=== PATIENT | female | born 1935 | race Caucasian/White ===

== ENCOUNTER 2017-02-12 15:39 | Emergency (ER) | payer MEDICARE, BC ==
[~2017-02-12] VITALS: Ht 172.7 cm; Wt 101.0 kg
[~2017-02-12 15:39] MED LIST: AMLO2.5T PO; ASPI81 PO; DETR2TAB PO; OMEP20TA PO; ROSU40 PO; TIMO0.255 OU; [UNRECOGNIZED DRUG - OTHER]
[2017-02-12 15:49] VITALS: BP 143/75; PULSE 79; RESP 18; TEMP 97.4; O2SAT 94
[2017-02-12] MEDS ORDERED: ACETAMINOPHEN 325 MG TAB PO ONE (16:00)
--- NOTE | 2017-02-12 16:02 | PD ---
HPI Chief Complaint: Fall Time Seen by Provider: 15:49 Travel History International Travel<30 days: No Contact w/Intl Traveler<30days: No Traveled to known affect area: No History of Present Illness HPI Patient is an 81-year-old female who presents to emergency room after she had a mechanical fall at the [facility] today. Patient reports that she was knitting, reports that she got up to use the restroom, reports that she has not lifts her leg up appropriately and ended up tripping and falling forward. Patient reports that when she fell, the brunt of the fall landed on her right knee. Patient reports that she also hit her right forehead onto the ground after the fall. Patient reports that she does take a baby aspirin per day, reports that she is not on any other anticoagulants at this time. Patient reports mild frontal headache, no dizziness. Patient with no nausea or vomiting , no neck pain or back pain. Denies chest or abdominal pain. Patient reports that she was not allowed ambulate after her fall. She also complains of right knee pain. 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 PFSH Past Medical History Hx Anticoagulant Therapy: No Arthritis: Yes Autoimmune Disease: No Blood Disorders: No Cancer: No Cardiovascular Problems: No High Cholesterol: Yes Chemotherapy: No Cerebrovascular Accident: No Diabetes: No Diminished Hearing: No Endocrine: No Gastrointestinal Disorders: Yes GERD: Yes Glaucoma: Yes Genitourinary: No Hypertension: Yes Immune Disorder: No Musculoskeletal: Yes Neurologic: No Psychiatric: No Respiratory: No Immunizations Current: Yes ?: Not Menopausal: Yes Past Surgical History Abdominal Surgery: Yes Body Medical Devices: T HIPS (BILAT) AND LEFT KNEE Cardiac Surgery: No Ear Surgery: No Endocrine Surgery: No Eye Surgery: Yes (LEFT EYE DETACHED RETNIA, BILATERAL CATARACT SX) Genitourinary Surgery: No Gynecologic Surgery: Yes (BILAT BREAST BIOPSY) Hysterectomy: No Joint Replacement: Yes (BILATERAL HIPS,BILAT KNEE'S) Neurologic Surgery: Yes Oral Surgery: Yes (WISDOM TEETH EXTRACTED) Thoracic Surgery: No Other Surgery: Yes (RIGHT FOOT NEUROMA REMOVED) Social History Alcohol Use: Yes (OCASS. WINE) Tobacco Use: No Substance Use: No Allergies-Medications (Allergen,Severity, Reaction): Coded Allergies: adhesive (Unverified Allergy, Severe, Rash, 02/12/17) Reported Meds & Prescriptions Reported Meds & Active Scripts Active Reported Crestor (Rosuvastatin Calcium) 40 Mg Tab 5 Mg PO DAILY Detrol 2 mg (Tolterodine Tartrate) 2 Mg Tab 2 Tab PO BID Amlodipine Besylate 2.5 mg (Amlodipine Besylate) 2.5 Mg Tab 2.5 Mg PO DAILY Omeprazole 20 mg (Omeprazole) 20 Mg Tab 20 Mg PO DAILY Timoptic (Timolol Maleate) 0.25 % Soln 1 Drop OU BID [Lumagan] 1 Drop HS Aspirin 81 Mg Tab 81 Mg PO DAILY Review of Systems General / Constitutional: No: Fever Eyes: No: Visual changes HENT: Positive: Headaches Cardiovascular: No: Chest Pain or Discomfort Respiratory: No: Shortness of Breath Gastrointestinal: No: Abdominal Pain Genitourinary: No: Dysuria Musculoskeletal: Positive: Limited ROM (right knee), Pain (right knee) Skin: No Rash Neurologic: Positive: Headache, No: Weakness, Dizziness Psychiatric: No: Depression Endocrine: No: Polydipsia Hematologic/Lymphatic: No: Easy Bruising Physical Exam Narrative GENERAL: No acute distress, nontoxic SKIN: Focused skin assessment warm/dry. HEAD: Normocephalic. Patient with mild abrasion to right forehead EYES: Pupils equal and round. No scleral icterus. No injection or drainage. ENT: No nasal bleeding or discharge. Mucous membranes pink and moist. NECK: Trachea midline. No JVD. CARDIOVASCULAR: Regular rate and rhythm. No murmur appreciated. RESPIRATORY: No accessory muscle use. Clear to auscultation. Breath sounds equal bilaterally. GASTROINTESTINAL: Abdomen soft, non-tender, nondistended. Hepatic and splenic margins not palpable. MUSCULOSKELETAL: No obvious deformities. No clubbing. No cyanosis. Patient with bruising to the right knee NEUROLOGICAL: Awake and alert. No obvious cranial nerve deficits. Motor grossly within normal limits. Normal speech. CN 2-12 grossly intact with no neurovascular deficits PSYCHIATRIC: Appropriate mood and affect; insight and judgment normal. Data Data Last Documented VS Vital Signs Date Time Temp Pulse Resp B/P (MAP) Pulse Ox O2 Delivery O2 Flow Rate FiO2 02/12/17 15:49 97.4 79 18 143/75 (97) [address] Brain W/O Iv Contrast(Rout) (02/12/17 15:55) Knee, Complete (4vws) (02/12/17 ) Acetaminophen (Tylenol) (02/12/17 16:00) MDM Medical Decision Making Medical Screen Exam Complete: Yes Emergency Medical Condition: Yes Medical Record Reviewed: Yes Interpretation(s) Vital Signs Date Time Temp Pulse Resp B/P (MAP) Pulse Ox O2 Delivery O2 Flow Rate FiO2 02/12/17 15:49 97.4 79 18 143/75 (97) 94 Differential Diagnosis ich, facial contusion, knee fx, patella fx, knee sprain Narrative Course During the course of the patients emergency department visit, the patients history, examination, and differential diagnosis were reviewed with the patient. The patient was placed on a telemetry monitor with oximetry and frequent blood pressure monitoring. The patient was initially provided acetaminophen for pain Radiology studies were reviewed and remarkable for: Last Impressions Knee X-Ray 02/12/17 0000 Signed Impressions: Service Date/Time: Friday, February 12, 2017 16:01 - CONCLUSION: 1. Intact total knee arthroplasty. 2. No fracture or effusion. Zach Veronica MD Ct of head: no acute disease Patient reevaluated, patient feeling much better at this time. Reviewed all labs and all studies with patient detail, patient ambulating emergency with normal gait. She'll follow-up with a primary care doctor and will return to the emergency room as needed. Diagnosis Primary Impression: Head injury Qualified Codes: S09.90XA - Unspecified injury of head, initial encounter Additional Impression: Knee contusion Qualified Codes: S80.01XA - Contusion of right knee, initial encounter Patient Instructions: General Instructions Additional Instructions: Please provide patient with a copy of their lab work and studies at discharge* * Please follow up with your primary care doctor in 2-3 days Return to the ER if symptoms worsen or progress Return to the ER as needed Ice/elevate your right lower extremity Disposition: 01 DISCHARGE HOME Condition: Stable ThangPrudence Emilia KABA Feb 12, 2017 16:02
--- NOTE | 2017-02-12 16:22 | RADRPT ---
EXAM DATE/TIME: 02/12/2017 16:01 [facility] COMPARISON: No previous studies available for comparison. INDICATIONS : Right knee pain post fall today MEDICAL HISTORY : None. SURGICAL HISTORY : Total knee replacement, right. ENCOUNTER: Initial ACUITY: 1 day PAIN SCORE: 7/10 LOCATION: Right anterior knee FINDINGS: Four view examination of the right knee demonstrates a total knee arthroplasty with no fracture or di slocation. All 3 components are appropriately positioned. No effusion. CONCLUSION: 1. Intact total knee arthroplasty. 2. No fracture or effusion. Zach Veronica MD on February 12, 2017 at 16:19 Board Certified Radiologist. This report was verified electronically.
--- NOTE | 2017-02-12 16:24 | RADRPT ---
EXAM DATE/TIME: 02/12/2017 16:08 [facility] COMPARISON: No previous studies available for comparison. INDICATIONS : Trauma, fall. RADIATION DOSE: 57.09 CTDIvol (mGy) MEDICAL HISTORY : Hypertension. SURGICAL HISTORY : None. ENCOUNTER: Initial ACUITY: 1 day PAIN SCALE: 5/10 LOCATION: anterior head TECHNIQUE: Multiple contiguous axial images were obtained of the head. Using automated exposure control and adj ustment of the mA and/or kV according to patient size, radiation dose was kept as low as reasonably a chievable to obtain optimal diagnostic quality images. DICOM format image data is available electro nically for review and comparison. FINDINGS: CEREBRUM: The ventricles are normal for age. No evidence of midline shift, mass lesion, hemorrhage or acute in farction. No extra-axial fluid collections are seen. POSTERIOR FOSSA: The cerebellum and brainstem are intact. The 4th ventricle is midline. The cerebellopontine angle i s unremarkable. EXTRACRANIAL: The visualized portion of the orbits is intact. SKULL: The calvaria is intact. No evidence of skull fracture. CONCLUSION: No acute disease. Benito Rodriguez Jr., MD on February 12, 2017 at 16:19 Board Certified Radiologist. This report was verified electronically.
[2017-02-12 17:22] VITALS: BP 132/78
== END 2017-02-12 17:23 | disposition home or self-care (01) ==
LOC: PHED 15:39
DX: S09.90XA Unspecified injury of head, initial encounter (principal); S80.01XA Contusion of right knee, initial encounter; W01.0XXA Fall on same level from slipping, tripping and stumbling without subsequent striking against object, initial encounter; Y93.89 Activity, other specified; Y92.89 Other specified places as the place of occurrence of the external cause
CPT/HCPCS: 70450; 73564; 99284